=== PATIENT | male | born 1950 | race Caucasian/White ===

== ENCOUNTER 2023-10-11 16:52 | Observation (INO) | payer MEDICARE, SELFPAY ==
[2023-10-11] VITALS (7 sets, daily range): BP systolic 62–132; BP diastolic 45–105; PULSE 89–116; RESP 16–32; TEMP 36.3–36.6; O2SAT 91–98; BMI 27.5
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
--- NOTE | 2023-10-11 17:12 | EKG12_ITS ---
Test Reason : Blood Pressure : / mmHG Vent. Rate : 102 BPM Atrial Rate : 102 BPM P-R Int : 152 ms QRS Dur : 092 ms QT Int : 364 ms P-R-T Axes : 046 054 028 degrees QTc Int : 474 ms Sinus tachycardia Otherwise normal ECG Confirmed by Kiran Avila ([id number]), editorial director ESVIN REA ([id number]) on 10/12/2023 2:08:56 PM Referred By: Confirmed By:Kiran Avila
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
[2023-10-11 17:30] LABS: Absolute Lymphocyte Count 1.87 X10^3/uL (0.83-4.51); Absolute Neutrophil Count 6.9 X10^3/uL (2.0-7.7); Basophil# 0.03 X10^3/uL; Basophil% 0.3 % (0-1); Eosinophil# 0.12 X10^3/uL; Eosinophils% 1.2 % (0-5); Hematocrit 48.5 % (40-54); Hemoglobin 16.6 g/dL (13.0-16.5); Lymphocyte # 1.87 X10^3/ul (0.83-4.51); Lymphocyte % 18.8 % (19-41); Mean Corp Hgb Conc 34.2 g/dL (32-36); Mean Corpuscular Hgb 31.9 pg (27.0-32.0); Mean Corpuscular Volume 93.3 fL (80-94); Mean Platelet Vol. 9.8 fl (6.2-12.0); Monocyte# 0.87 X10^3/uL; Monocyte% 8.7 % (0-10); NRBC Flagged by Analyzer 0 % (0-5); Neutrophil # 6.91 X10^3/uL (2.7-7.7); Neutrophil % 69.3 % (47-70); Platelet Count 211 K/mm3 (150-450); RBC Distribution Width CV 12.3 % (11.6-14.6); RBC Distribution Width SD 42.6 fl (35.1-43.9)
--- NOTE | 2023-10-11 17:30 | RAD_ITS ---
INDICATION: pain EXAMINATION/TECHNIQUE: X-RAY - RIGHT XR Forearm 2 Views 2 VIEWS COMPARISON: No relevant prior comparison study available FINDINGS: SOFT TISSUES: No soft tissue swelling or gas. No radiopaque foreign body. BONES/JOINTS: No acute fracture or subluxation.. Normal alignment. Preservation of the joint space.. No sclerotic or destructive changes observed. RAD/Forearm 2 Views IMPRESSION: Negative. Electronically Signed: Juan José Cochran MD at 18:10 EDT ,
[2023-10-11] MEDS: 0.9% Normal Saline (1000mL) 1,000 ML 999 ML IV (17:44)
[2023-10-11] MEDS: Diphth,Pertuss(Acell),Tet Vac 0.5 ML Vial IM (17:44)
[2023-10-11 17:45] LABS: ALB/GLOB Ratio 0.9 RATIO (0.9-2.4); AST(SGOT) 40 U/L (15-37); Alanine Aminotransfer ALT/SGPT 54 U/L (16-61); Albumin, Serum 3.3 g/dL (3.2-5.0); Alkaline Phosphatase 82 U/L (45-117); Anion Gap 9 (5-15); BUN 15 mg/dL (7-18); BUN/Creat Ratio 11.2 RATIO (10-20); Calcium,Total 8.5 mg/dL (8.5-10.1); Chloride 103 mmol/L (98-107); Creatinine, Serum 1.34 mg/dL (0.70-1.30); EST Glomerular Filtration Rate 56 mL/min (>60); Est Glom Filt Rate - Afr Amer 67 mL/min (>60); Globulin 3.8 g/dL (2.2-4.2); Glucose 139 mg/dL (74-106); Potassium 3.7 mmol/L (3.5-5.1); Protein, Total 7.1 g/dL (6.4-8.2); Sodium Level 133 mmol/L (136-145); Troponin-I HS 8 pg/mL (3.0-78.0)
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
--- NOTE | 2023-10-11 18:00 | RAD_ITS ---
INDICATION: edema EXAMINATION/TECHNIQUE: X-RAY - LEFT XR Forearm 2 Views 2 VIEWS COMPARISON: No relevant prior comparison study available FINDINGS: SOFT TISSUES: Diffuse soft tissue swelling around the forearm. This is very localized. No radiopaque foreign body. BONES/JOINTS: No acute fracture or subluxation.. Normal alignment. Preservation of the joint space.. No sclerotic or destructive changes observed. RAD/Forearm 2 Views IMPRESSION: Swelling around the forearm. Electronically Signed: Juan José Cochran MD at 18:38 EDT ,
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
[2023-10-11] MEDS: HYDROcodone Bitartrate/Apap 5/325 Tablet PO ×2 (19:33→23:45)
[2023-10-11] MEDS: Ondansetron ODT 4 MG Tablet PO (19:33)
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
[2023-10-11 22:24] LABS: Amphetamine Urine VISTA NEGATIVE (<1000 ng/mL); Barbiturate Urine VISTA NEGATIVE (< 200 ng/mL); Benzodiazepine Urine VISTA NEGATIVE (< 200 ng/mL); Cocaine Urine VISTA NEGATIVE (< 300 ng/mL); Ecstacy Urine VISTA NEGATIVE (< 500 ng/mL); Methadone Urine VISTA NEGATIVE (< 300 ng/mL); PCP Urine VISTA NEGATIVE (< 25 ng/mL); THC Urine VISTA NEGATIVE (< 50 ng/mL); Vista UDS pH Range 5
[2023-10-11 23:20] LABS: Alcohol, Blood (Medical)-Serum < 3.0 mg/dL
--- NOTE | 2023-10-11 23:35 | NURSING ---
Patient denies any pain or problems with left arm at this time. Left arm is elevated on pillows with ice pack
[2023-10-11] MEDS: 0.9% Normal Saline (250mL Bag) 250 ML 999 ML IV (23:46)
[2023-10-11 23:52] LABS: Troponin-I HS 12 pg/mL (3.0-78.0)
[2023-10-12 00:04] LABS: CPK Total, Creatine Kinase 386 U/L (39-308)
--- NOTE | 2023-10-12 05:00 | EKG12_ITS ---
Test Reason : AM EKG Blood Pressure : / mmHG Vent. Rate : 081 BPM Atrial Rate : 081 BPM P-R Int : 154 ms QRS Dur : 092 ms QT Int : 390 ms P-R-T Axes : 060 064 034 degrees QTc Int : 453 ms Normal sinus rhythm with sinus arrhythmia Normal ECG When compared with ECG of 11-OCT-2023 17:24, MANUAL COMPARISON REQUIRED, DATA IS UNCONFIRMED Confirmed by Kiran Avila ([id number]), fan mail editor ESVIN REA ([id number]) on 10/13/2023 7:44:47 AM Referred By: Confirmed By:Kiran Avila
[2023-10-12] MEDS: Aspirin E.C. 81 MG Tablet PO (05:05)
[2023-10-12] MEDS: HYDROcodone Bitartrate/Apap 5/325 Tablet PO ×3 (05:17→14:36)
[2023-10-12 05:30] VITALS: BP 106/80; PULSE 83; RESP 18; TEMP 36.1; O2SAT 98
[2023-10-12 06:52] LABS: Absolute Lymphocyte Count 1.87 X10^3/uL (0.83-4.51); Absolute Neutrophil Count 7.8 X10^3/uL (2.0-7.7); Basophil# 0.02 X10^3/uL; Basophil% 0.2 % (0-1); Eosinophil# 0.06 X10^3/uL; Eosinophils% 0.5 % (0-5); Hematocrit 45.2 % (40-54); Hemoglobin 15.5 g/dL (13.0-16.5); Lymphocyte # 1.87 X10^3/ul (0.83-4.51); Mean Corp Hgb Conc 34.3 g/dL (32-36); Mean Corpuscular Hgb 32.6 pg (27.0-32.0); Mean Corpuscular Volume 95.2 fL (80-94); Mean Platelet Vol. 9.6 fl (6.2-12.0); Monocyte# 1.19 X10^3/uL; Monocyte% 10.8 % (0-10); NRBC Flagged by Analyzer 0 % (0-5); Neutrophil # 7.82 X10^3/uL (2.7-7.7); Platelet Count 190 K/mm3 (150-450); RBC Distribution Width CV 12.6 % (11.6-14.6); RBC Distribution Width SD 44.7 fl (35.1-43.9); Red Blood Count 4.75 M/mm3 (4.6-6.2)
[2023-10-12 07:32] LABS: CPK Total, Creatine Kinase 282 U/L (39-308)
[2023-10-12 08:24] LABS: ALB/GLOB Ratio 0.9 RATIO (0.9-2.4); AST(SGOT) 35 U/L (15-37); Alanine Aminotransfer ALT/SGPT 45 U/L (16-61); Alkaline Phosphatase 75 U/L (45-117); Anion Gap 6 (5-15); BUN 15 mg/dL (7-18); BUN/Creat Ratio 15.4 RATIO (10-20); Calcium,Total 8.1 mg/dL (8.5-10.1); Chloride 107 mmol/L (98-107); Creatinine, Serum 0.98 mg/dL (0.70-1.30); EST Glomerular Filtration Rate 80 mL/min (>60); Est Glom Filt Rate - Afr Amer 97 mL/min (>60); Estimated Creatinine Clearance 78.05 ml/min; Globulin 3.4 g/dL (2.2-4.2); Glucose 120 mg/dL (74-106); Potassium 4.2 mmol/L (3.5-5.1); Protein, Total 6.4 g/dL (6.4-8.2); Sodium Level 136 mmol/L (136-145)
[2023-10-12 08:53] LABS: Vitamin B12 300 pg/mL (211-911)
[2023-10-12] MEDS: Lisinopril 20 MG Tablet PO (09:07)
[2023-10-12] MEDS: Tamsulosin HCl 0.4 MG Capsule PO (09:07)
[2023-10-12] MEDS: Ascorbic Acid 500 MG Tablet PO (09:07)
[2023-10-12] MEDS: Multivitamins,Therapeutic Tablet 1 TABLET PO (09:07)
[2023-10-12] MEDS: 0.9% Saline Lock 10 ML Syringe IV (09:08)
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
[2023-10-12] MEDS: 0.9% Normal Saline (1000mL) 1,000 ML 100 ML IV ×2 (10:00)
--- NOTE | 2023-10-12 11:01 | CASEMGMT ---
Social Work Pt does not have LW/POA, declined further information as per admitting RN. ROBER Patel
[2023-10-12 11:30] VITALS: BP 134/84; PULSE 84; RESP 18; TEMP 36.4; O2SAT 97
[2023-10-12] MEDS: 0.9% Normal Saline (1000mL) 1,000 ML 200 ML IV ×2 (11:50→16:57)
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
[2023-10-12 14:14] VITALS: BP 105/79; BP 110/80; BP 96/70; PULSE 100; PULSE 102; PULSE 110
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
[2023-10-12 17:30] VITALS: BP 125/78; PULSE 78; RESP 18; TEMP 36.7; O2SAT 97
[2023-10-12 20:54] VITALS: BP 127/74; PULSE 94; RESP 16; TEMP 36.8; O2SAT 96
[2023-10-12] MEDS: Acetaminophen 325 MG Tablet 650 MG PO (21:03)
[2023-10-13 03:00] VITALS: BP 124/72; PULSE 75; RESP 16; TEMP 36.8; O2SAT 98
--- NOTE | 2023-10-13 05:55 | EKG12_ITS ---
Test Reason : AM EKG Blood Pressure : / mmHG Vent. Rate : 090 BPM Atrial Rate : 090 BPM P-R Int : 158 ms QRS Dur : 090 ms QT Int : 358 ms P-R-T Axes : 069 080 063 degrees QTc Int : 437 ms Normal sinus rhythm Nonspecific ST abnormality Abnormal ECG When compared with ECG of 12-OCT-2023 05:31, No significant change was found Confirmed by Kiran Avila ([id number]), editor newspaper ALFRED LENTZ ([id number]) on 10/15/2023 2:18:39 PM Referred By: JANG Confirmed By:Kiran Avila
[2023-10-13] MEDS: Aspirin E.C. 81 MG Tablet PO (06:10)
[2023-10-13 06:13] VITALS: BP 107/82; BP 135/90; BP 135/93; PULSE 100; PULSE 84; PULSE 95
[2023-10-13 06:40] LABS: Absolute Lymphocyte Count 1.58 X10^3/uL (0.83-4.51); Absolute Neutrophil Count 6.2 X10^3/uL (2.0-7.7); Basophil# 0.04 X10^3/uL; Basophil% 0.4 % (0-1); Eosinophil# 0.16 X10^3/uL; Eosinophils% 1.8 % (0-5); Hematocrit 43.2 % (40-54); Hemoglobin 14.9 g/dL (13.0-16.5); Lymphocyte # 1.58 X10^3/ul (0.83-4.51); Lymphocyte % 17.6 % (19-41); Mean Corp Hgb Conc 34.5 g/dL (32-36); Mean Corpuscular Hgb 32.5 pg (27.0-32.0); Mean Corpuscular Volume 94.3 fL (80-94); Mean Platelet Vol. 10.1 fl (6.2-12.0); Monocyte# 0.94 X10^3/uL; Monocyte% 10.5 % (0-10); NRBC Flagged by Analyzer 0 % (0-5); Neutrophil # 6.21 X10^3/uL (2.7-7.7); Platelet Count 166 K/mm3 (150-450); RBC Distribution Width CV 12.4 % (11.6-14.6); Red Blood Count 4.58 M/mm3 (4.6-6.2)
[2023-10-13 07:24] LABS: ALB/GLOB Ratio 0.8 RATIO (0.9-2.4); AST(SGOT) 31 U/L (15-37); Alanine Aminotransfer ALT/SGPT 40 U/L (16-61); Albumin, Serum 2.8 g/dL (3.2-5.0); Alkaline Phosphatase 71 U/L (45-117); Anion Gap 6 (5-15); BUN 12 mg/dL (7-18); BUN/Creat Ratio 14.8 RATIO (10-20); Calcium,Total 8.4 mg/dL (8.5-10.1); Chloride 110 mmol/L (98-107); Creatinine, Serum 0.81 mg/dL (0.70-1.30); EST Glomerular Filtration Rate 99 mL/min (>60); Est Glom Filt Rate - Afr Amer 120 mL/min (>60); Estimated Creatinine Clearance 94.43 ml/min; Globulin 3.4 g/dL (2.2-4.2); Glucose 102 mg/dL (74-106); Magnesium 2.2 mg/dL (1.6-2.6); Potassium 3.9 mmol/L (3.5-5.1); Protein, Total 6.2 g/dL (6.4-8.2); Sodium Level 136 mmol/L (136-145)
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
[2023-10-13 08:00] VITALS: BP 115/84; PULSE 94; RESP 18; TEMP 36.7; O2SAT 96
[2023-10-13] MEDS: 0.9% Normal Saline (1000mL) 1,000 ML 125 ML IV (08:05)
[2023-10-13] MEDS: 0.9% Saline Lock 10 ML Syringe IV (08:06)
--- NOTE | 2023-10-13 10:10 | CASEMGMT ---
RN YONATAN Face to Face with patient for initial transition planning/care coordination assessment. RN CM introduced self and role at [facility]. Patient lying in bed in no distress, alert and oriented. Patient willing to participate in assessment and is able to answer all questions appropriately. Care providers, pharmacy, and demographics verified. PCP: Jocelin Specialists: Denies Preferred Pharmacy: [facility] Insurance: [employer] Prescription Benefit: yes Living Will/HPOA: Yes, daughter is HCPOA LNOK: Sister, Daughter Living Arrangements: Pt lives alone in a 2 story house with 2 steps to enter. Pt states I with ADLs and IADLs. Transportation: Pt states drives self. DME/HHC: pt states has cane at home. Denies Hx of SNF or HHC. Patient wishes to discharge home, denies need for home health at this time. Patient states he has no further needs or concerns at this time. CM to follow for discharge planning needs that may arise. Disposition Plan: Home, will follow plan of care. Mary Torres MBA, RN, CM
[2023-10-13] MEDS: Multivitamins,Therapeutic Tablet 1 TABLET PO (10:40)
[2023-10-13] MEDS: Ascorbic Acid 500 MG Tablet PO (10:41)
[2023-10-13 13:21] VITALS: BP 103/76; BP 124/96; BP 131/97; PULSE 89; PULSE 95; RESP 16; TEMP 36.6; O2SAT 98
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
[2023-10-13 17:00] VITALS: BP 135/82; PULSE 93; RESP 18; TEMP 36.8; O2SAT 97
== END 2023-10-13 17:06 | disposition home or self-care (01) | DRG 312 ==
LOC: ED 20:16 → PCU 22:40
PROVIDERS: Physician Assistant; Admitting Provider Internal Medicine; Emergency Provider Emergency Medicine; PCP Preventive Medicine Occupational Medicine; Visit Provider Internal Medicine
DX: R55 Syncope and collapse (principal); N13.8 Other obstructive and reflux uropathy; I10 Essential (primary) hypertension; S51.012A Laceration without foreign body of left elbow, initial encounter; S51.811A Laceration without foreign body of right forearm, initial encounter; S20.219A Contusion of unspecified front wall of thorax, initial encounter; S50.11XA Contusion of right forearm, initial encounter; S50.12XA Contusion of left forearm, initial encounter; V43.52XA Car driver injured in collision with other type car in traffic accident, initial encounter; Z87.891 Personal history of nicotine dependence; Z79.891 Long term (current) use of opiate analgesic; Z79.82 Long term (current) use of aspirin; N40.1 Benign prostatic hyperplasia with lower urinary tract symptoms; Z79.899 Other long term (current) drug therapy; R94.31 Abnormal electrocardiogram [ECG] [EKG]
CPT/HCPCS: 36415; 70450; 71260; 72125; 73090; 74177; 78452; 80053; 80307; 82077; 82550; 82607; 82746; 83735; 84100; 84484; 85025; 90715; 93005; 93017; 93306; 93880; 95819; 96360; 96361; 97802; 99221; 99285; A9500; J7030; J7050; Q9957; Q9967; A4216; C8929; G0378; J2785

== ENCOUNTER 2025-03-18 20:44 | Emergency (ER) | payer MEDICARE, SELFPAY ==
[2025-03-18 20:45] VITALS: BP 128/95; PULSE 111; RESP 14; TEMP 36.1; O2SAT 94; BMI 27.9
--- NOTE | 2025-03-18 21:07 | CT_ITS ---
PROCEDURE: ABDOMEN/PELVIS W IV CONT ONLY 03/18/2025 REASON FOR EXAM: ABDOMINAL PAIN Diarrhea. TECHNIQUE: Procedure Code: [id number] Modality: CT Procedure: ABDOMEN/PELVIS W IV CONT ONLY Coronal and Sagittal reconstruction series were provided. CONTRAST: Isovue 370 VOLUME: 90 mL One or more dose reduction techniques were used (e.g., Automated exposure control, adjustment of the mA and/or kV according to patient size, use of iterative reconstruction technique. RADIATION DOSE SUMMARY: CTDlvol: 34 mGy DLP: 1127 mGycm COMPARISON: None. FINDINGS: Lung bases: Negative. ABDOMEN Liver: Mild fatty infiltration of the liver. Negative. Biliary system: Negative. Negative for intrahepatic or extrahepatic ductal dilatation. Gallbladder: Negative. Negative for cholecystitis. Spleen: Negative. Pancreas: Negative. Adrenals: Negative. Kidneys: Left renal simple cysts. Negative for kidney stones or masses. Bowel: Thickening and stranding of the descending colon and sigmoid colon extends to the rectum. Negative for small or large-bowel obstruction. Appendix: Likely previously removed. Vasculature: Negative for atherosclerotic vascular calcifications of the abdominal aorta and its branches. Peritoneum / Retroperitoneum: Negative. PELVIS Lymph nodes: Mildly prominent right inguinal canal. Negative for inguinal or iliac adenopathy. Bladder: Urinary bladder negative. Reproductive Organs: Prostate normal for age. Bones and Soft Tissues: [id number] age appropriate appearance of the lumbar spine hips and pelvis. CT/Abdomen/Pelvis W IV Cont ONLY IMPRESSION: Pancolitis correlate clinically for ulcerative colitis. Or less likely pseudom embranous colitis. Reading Location: [id number]
--- NOTE | 2025-03-18 21:08 | EKG12_ITS ---
Test Reason : DYSRHYTHMIA Blood Pressure : */* mmHG Vent. Rate : 100 BPM Atrial Rate : 100 BPM P-R Int : 154 ms QRS Dur : 90 ms QT Int : 334 ms P-R-T Axes : 47 56 24 degrees QTcB Int : 430 ms Normal sinus rhythm Nonspecific ST abnormality Abnormal ECG Confirmed by GINA PINZON, ANNA ([id number]), editor at large ESVIN REA ([id number]) on 03/21/2025 1:10:02 PM Referred By: Confirmed By: ANNA FUENTES MD
--- NOTE | 2025-03-18 21:08 | EX.ED.DYSGE1 ---
HPI History of Present Illness Chief Complaint: Diarrhea Informant: patient Narrative Narrative: 74-year-old male presenting to the emergency room with chief complaint of rectal bleeding and syncope. Patient states that he was constipated for the past several days. He took a couple stool softeners yesterday and this morning was having abdominal cramping and states that he was straining on the toilet significantly. States he had 2 syncopal episodes in time. He states that he finally ended up having a extremely large bowel movement followed by some diarrhea. He states he is no longer having the abdominal pain but he does get cramps and feels like he needs to have a bowel movement. When he goes to have a bowel movement he states that there is some bright red blood but no stool. He states that he does not believe he injured himself in any of the syncopal episodes. He takes aspirin but no other blood thinners. He states he does not drink enough water and wonders if that has something to do with his constipation. He denies any significant abdominal pain at the time of the examination. He denies rectal pain. [facility] Medical History HTN (hypertension) Home Medications ?Medication ?Instructions ?Recorded ?Last Taken ?Type ascorbate calcium (vitamin C) 500 500 mg PO DAILY VITAMIN 01/04/14 Unknown History mg tablet aspirin 81 mg tablet,delayed 81 mg PO DAILY@0800 HEART HEALTH 01/04/14 Unknown History release multivitamin with folic acid 400 1 tab PO DAILY supplment 01/04/14 Unknown History mcg tablet (Thera) amoxicillin 875 mg-potassium 875 mg (0.875 x 875-125 mg) PO 03/18/25 Unknown Rx clavulanate 125 mg tablet Q12H #20 TABLETS lisinopril 20 mg tablet 20 mg PO DAILY 03/18/25 Unknown History Allergy/AdvReac Type Severity Reaction Status Date / Time No Known Allergies Allergy Verified 03/18/25 20:50 Surgical History History of appendectomy Social History Smoking Status: Former smoker ROS ROS ED Constitutional Constitutional ED: Denies chills, fever(s) or weight loss Eyes Eyes: Denies change in vision or diplopia ENT ENT ED: Denies ear pain, rhinorrhea or sore throat Cardiovascular Cardiovascular: Reports other Details: Syncope ; Denies chest pain, orthopnea, palpitations or racing heartbeat Respiratory/Chest Respiratory/Chest: Denies cough, dyspnea or orthopnea Gastrointestinal Gastrointestinal: Reports constipation, diarrhea and other Details: BRBPR ; Denies abdominal pain, nausea or vomiting Genitourinary Genitourinary ED: Denies dysuria, hematuria or urinary frequency Musculoskeletal Musculoskeletal: Denies arthralgias or myalgias Integumentary Denies abscess or rash Neurologic Neurologic: Denies headache(s) or weakness Psychiatric Psychiatric: Denies anxiety, depression, suicidal ideation or suicidal thoughts Endocrine Endocrinology: Denies polydipsia, polyphagia or polyuria Allergic/Immunologic Allergic/Immunologic ED: Denies mouth swelling, tongue swelling or urticaria EXAM Physical Exam Const Vital Signs: 03/18/25 20:45 Temperature 97 F L Temperature Source Temporal Pulse Rate 111 H Respiratory Rate 14 Blood Pressure 128/95 H Blood Pressure Mean 106 Pulse Ox 94 Oxygen Delivery Method Room Air Positive well nourished and well developed General Appearance ED: well developed and NAD HEENT Reports normocephalic, head/scalp atraumatic and moist mucous membranes Eyes PERRL and EOMs intact bilaterally Neck no lymphadenopathy, supple and no JVD Resp normal respiratory effort and clear to auscultation bilaterally Cardio regular rate, regular rhythm and no murmurs Rate: tachycardic GI normal to inspection, nondistended, normoactive bowel sounds, non-tender and no masses GI Narrative: There is no tenderness on deep palpation of the abdomen. The abdomen is soft. No guarding or rebound Inspection: Negative for abdominal distention Auscultation: normoactive bowel sounds Palpation: soft; Negative for tender, guarding or rebound tenderness present Narrative: Rectal examination was performed. There is a nonthrombosed hemorrhoid located in around the 9 o'clock position. There is also an anal fissure noted at about 11:00. There is mild bleeding from the fissure. Back/Spine no CVA tenderness and normal ROM Extremity normal to inspection General Extremety ED: Negative for edema General Extremity: Negative for edema Neuro oriented x3 and CN's II-XII intact bilaterally Sensorium / Orientation: alert Motor Exam: strength 5/5 throughout Psych mental status grossly normal Mood & Affect: Negative for depressed or tearful Skin no rashes or lesions noted and no wounds MDM MDM MDM Narrative Medical decision making narrative: Differential diagnosis includes but not limited to vasovagal syncope cardiogenic syncope electrolyte abnormalities colitis diverticulitis anal fissure hemorrhoidal bleeding volvulus uncal paresis White count elevated 14.9 hemoglobin 16.8 plate count of 227. BMP with a glucose of 144 creatinine 1.26 troponin is 9. EKG is a sinus rhythm at a rate of 100 bpm. CTA of the pelvis demonstrates changes consistent with colitis particularly in the descending sigmoid region. Clinically patient is constipated states he had a significant bowel movement during the passage of which he had several vasovagal episodes. I think that the significant constipation has led to a degree of colitis of which we have treated initially with Zosyn followed by home treatment of Augmentin. Hemodynamically believe the patient is stable. He does have an anal fissure which can also be a source of the bleeding as well as an external hemorrhoid in addition to the colitis. I would recommend the patient continue with a stool softener or use of Metamucil and increase fluids in his diet. I would recommend PCP follow-up 3 to 5 days. Monitor for changes return if worsening or concerns. History & Record Review Discussion w/independent historian: Patient Lab Data Attestation: I reviewed the patient's lab results. Labs: Laboratory Results - last 24 hr 03/18/25 21:13 WBC 14.9 H RBC 5.17 Hgb 16.8 H Hct 48.7 MCV 94.2 H MCH 32.5 H MCHC 34.5 RDW Std Deviation 41.8 RDW Coeff of Michael 12.1 Plt Count 227 MPV 9.6 Immature Gran % (Auto) 0.700 Neut % (Auto) 81.0 H Lymph % (Auto) 8.6 L [place] % (Auto) 9.1 Eos % (Auto) 0.3 Baso % (Auto) 0.3 Absolute Neuts (auto) 12.0 H Absolute Lymphs (auto) 1.27 Nucleated RBC % 0 Sodium 132 L Potassium 4.6 Chloride 99 Carbon Dioxide 22.7 Anion Gap 11 BUN 21 H Creatinine 1.26 H Estim Creat Clear Calc 64.63 Est GFR (MDRD) Non-Af 60 BUN/Creatinine Ratio 17.0 Glucose 144 H Calcium 9.4 Troponin T High Sens 9 Radiography Diagnostic Testing: Clinical Impression(s) from Imaging Studies Abdomen/Pelvis CT 03/18/25 21:07 IMPRESSION: Pancolitis correlate clinically for ulcerative colitis. Or less likely pseudomembranous colitis. Reading Location: [facility] Discharge Plan Triage Chief Complaint: Diarrhea ED Provider: Davis Delgado Dx/Rx/DC Orders Clinical Impression: Colitis, Acute lower gastrointestinal bleeding, Acute anal fissure, External hemorrhoid, Vasovagal syncope Instructions: Colitis, Rectal Bleeding Tx, ED Hemorrhoids, ED Fainting, Vagal Reaction Prescriptions: New amoxicillin-pot clavulanate 875-125 mg tablet 875 mg PO Q12H Qty: 20 0RF No Action aspirin 81 MG tablet 81 mg PO DAILY@0800 Patient Comments: heart health ascorbate calcium (vitamin C) 500 MG tablet 500 mg PO DAILY Patient Comments: supplement multivitamin with folic acid [Thera] 1 TABLET tablet 1 tab PO DAILY Patient Comments: supplement lisinopril 20 mg tablet 20 mg PO DAILY Primary Care Provider: Xochitl Raymond Referrals: Cesar Monreal DO [Non-Staff, Family Practice] - 3-5 Days Print Language: Khmer
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
[2025-03-18 21:21] LABS: Hematocrit 48.7 % (40-54); Hemoglobin 16.8 g/dL (13.0-16.5); Immature Granulocytes Count 0.100 X10^3/uL (0.0-0.0); Mean Corp Hgb Conc 34.5 g/dL (32-36); Mean Corpuscular Volume 94.2 fL (80-94); Mean Platelet Vol. 9.6 fl (6.2-12.0); NRBC Flagged by Analyzer 0 % (0-5); Platelet Count 227 K/mm3 (150-450); RBC Distribution Width CV 12.1 % (11.6-14.6); RBC Distribution Width SD 41.8 fl (35.1-43.9); Red Blood Count 5.17 M/mm3 (4.6-6.2); White Blood Count 14.9 K/mm3 (4.4-11.0)
[2025-03-18 21:43] LABS: Anion Gap 11 (5-15); BUN 21 mg/dL (4-19); BUN/Creat Ratio 17.0 RATIO (10-20); Calcium,Total 9.4 mg/dL (7.6-11.0); Carbon Dioxide 22.7 mmol/L (21.0-32.0); Chloride 99 mmol/L (98-108); Estimated Creatinine Clearance 64.63 ml/min (50-250); Glucose 144 mg/dL (70-99); Potassium 4.6 mmol/L (3.3-5.1)
[2025-03-18] MEDS: Piperacil/Tazobactam 4.5 GM in 0.9% Normal Saline (100mL MB+) 100 ML IV (21:52)
[2025-03-18 22:01] LABS: Troponin T High Sensitivity 9 ng/L (<=22)
[2025-03-18 22:39] VITALS: BP 100/77; PULSE 92; RESP 16; TEMP 36.1; O2SAT 95
[2025-03-18 22:45] VITALS: BP 100/77
== END 2025-03-18 22:48 | disposition home or self-care (01) ==
PROVIDERS: Emergency Provider Emergency Medicine; PCP Student in an Organized Health Care Education/Training Program; Visit Provider Emergency Medicine
DX: K52.9 Noninfective gastroenteritis and colitis, unspecified (principal); K64.4 Residual hemorrhoidal skin tags; Z79.82 Long term (current) use of aspirin; K60.0 Acute anal fissure; Z87.891 Personal history of nicotine dependence; R55 Syncope and collapse; I10 Essential (primary) hypertension; Z79.899 Other long term (current) drug therapy
CPT/HCPCS: 74177; 80048; 84484; 85025; 93005; 96365; 96375; 96376; 99284; Q9967; A4216; J2405